=== PATIENT | male | born 1995 | race African-American/Black ===

== ENCOUNTER 2023-08-17 08:44 | Emergency (ER) | payer MEDICAID, SELFPAY ==
--- NOTE | ~2023-08-17 | XR_ITS ---
EXAMINATION: XR CHEST CLINICAL INFORMATION: Shortness of breath. Chest pain. COMPARISON: None available. TECHNIQUE: 2 views of the chest were obtained. FINDINGS: The lungs are well expanded. No focal consolidation. No pleural effusion. Cardiac silhouette is within normal limits. XR/XR chest 2V IMPRESSION: No acute abnormality.
--- NOTE | 2023-08-17 08:47 | ECG_ITS ---
Test Reason : chest tightness Blood Pressure : / mmHG Vent. Rate : 070 BPM Atrial Rate : 070 BPM P-R Int : 172 ms QRS Dur : 094 ms QT Int : 370 ms P-R-T Axes : 013 024 012 degrees QTc Int : 399 ms Normal sinus rhythm Normal ECG No previous ECGs available Referred By: Generic ED Physician Electronically Signed By:Brice Grullon
[2023-08-17 09:08] VITALS: BP 144/89; PULSE 69; RESP 18; TEMP 36.4; O2SAT 97; BMI 45.1
[2023-08-17 09:22] LABS: MANUAL DIFF FLAG NO
[2023-08-17 09:23] LABS: Basophils Percent Auto 0.3 % (0-2); Eosinophils Percent Auto 0.5 % (0-4); Hematocrit 40.1 % (42.0-52.0); Hemoglobin 13.1 g/dl (14.0-18.0); Imm Gran Abs Auto 0.02 X10*3/uL (0.00-0.03); Imm Gran Pct Auto 0.3 % (0.0-0.4); Lymphocytes Absolute Auto 2.2 X10*3/uL (1.2-4.9); Lymphocytes Percent Auto 36.5 % (20-40); Mean Corpuscular HGB Conc 32.7 g/dl (31.0-36.0); Mean Corpuscular Hemoglobin 26.7 pg (27.0-33.0); Mean Corpuscular Volume 81.7 fL (80.0-98.0); Mean Platelet Volume 10.6 fL (9.4-12.4); Monocytes Absolute Auto 0.5 X10*3/uL (0.1-1.2); Monocytes Percent Auto 7.9 % (2-11); Neutrophils Absolute Auto 3.2 x10*3/uL (2.0-8.3); Neutrophils Percent Auto 54.5 % (45-73); Platelet Count 197 X10*3/uL (160-400); Red Blood Count 4.91 X10*6/uL (4.60-5.80); Red Cell Distribution Width 13.8 % (11.0-16.0); White Blood Count 5.9 X10*3/uL (4.8-10.8)
[2023-08-17 09:41] LABS: Anion Gap 12 (12-20); Blood Urea Nitrogen 13 mg/dL (9-16); Calcium 10.1 mg/dL (8.4-10.2); Carbon Dioxide 27 mmol/L (22-29); Chloride 106 mmol/L (96-108); Estimated Glomerular Filt Rate > 60; Glucose Random 116 mg/dL (60-115); Potassium 3.9 mmol/L (3.3-5.1); Sodium 141 mmol/L (135-145)
[2023-08-17 09:51] LABS: Troponin-I High Sensitivity < 2.7 ng/L (<3.5-35.0)
--- NOTE | 2023-08-17 10:20 | ED_ITS ---
HPI - Chest Pain General Chief Complaint: Chest Pain Stated Complaint: Chest Tightness Time Seen by Provider: 08/17/23 10:19 Source: patient Mode of arrival: ambulatory Limitations: no limitations History of Present Illness HPI narrative: 28-year-old male with history of obesity presents to the ER for evaluation of chest pain that started last night while he was at work. He states the patient was sharp and in his central chest. It was nonradiating. He states it started when he was at work, shortly after moving a patient. Also started shortly after eating spicy foods. He took an aspirin and Tums with improvement in the pain. He went home and went to bed. He woke up with recurring pain again today. He reports some shortness of breath with exertion that is chronic in nature. No leg swelling. No cough, difficulty breathing, fever, chills, abdominal pain, nausea or diarrhea. No history of similar episodes in the past. No known medical history. MD complaint: chest pain Onset (ago): day(s) (1) Timing of current episode: episodic Prior episodes: No Onset: during exertion Pain location: substernal Severity: moderate Pain scale (0-10): 6 Quality: sharp Relieving factors: antacids Exacerbating factors: nothing Treatment prior to arrival: aspirin Risk Factors Coronary artery disease risk factors: none Thoracic aortic dissection risk factors: none Related Data Allergies Allergy/AdvReac Type Severity Reaction Status Date / Time No Known Allergies Allergy Verified 08/17/23 09:11 Review of Systems 2 Review of Systems: Yes all other systems are reviewed and are negative [facility] Social History Social History Advance Directives: No Advance Directives Information Provided: No Do you have a plan to hurt others: No Plan Physical Exam 2 Vital Signs: Vital Signs: Last Vital Signs Temp 97.4 F 08/17/23 11:37 Pulse 60 08/17/23 11:37 Resp 20 08/17/23 11:37 BP 147/86 H 08/17/23 11:37 Pulse Ox 96 08/17/23 11:37 O2 Del Method Room Air 08/17/23 11:37 BMI result Body Mass Index 45.1 Appearance: Alert. Oriented X3. No acute distress. Head: normocephalic, atraumatic. Eyes: Pupils equal, round and reactive to light. ENT: Pharynx normal. No tonsillar swelling or exudate. Neck: Normal inspection. Neck supple. CVS: Normal heart rate and rhythm. Pulses normal. Nontender chest wall. Respiratory: No respiratory distress. Breath sounds normal. Abdomen: Obese, Soft and nontender. +BS x4 Skin: Skin warm and dry. Normal skin color. Normal skin turgor. No rashes. Extremities: No lower extremity edema. No joint swelling. Neuro/psych: Oriented X 3. No motor deficit. No sensory deficit. CN II-XII intact. Normal speech and cognition. Medications Administered Discontinued Medications Generic Name Dose Route Start Last Admin Trade Name Dimitrios PRN Reason Stop Dose Admin Calcium Carbonate 1,500 mg 08/17/23 10:41 08/17/23 11:00 Calcium Carbonate 750 Mg Tab.Chew PO 08/17/23 10:42 1,500 mg ONCE ONE Administration Medical Decision Making Medical Decision Making [facility] Narrative: 28-year-old male with no medical history presents to the ER for evaluation of sharp chest pain that started last night, resolved w/ ASA and TUMS. returned today. VS are stable and exam is benign. PERC negative. Chest pain is not pretty reproducible on examination. Low suspicion for cardiac etiology given improvement with Tums. His workup initiated from triage reveals a negative troponin. No need to repeat as onset was greater than 6 hours ago. EKG without ischemic changes. He was given dose of Tums while in the emergency department with improvement in his pain. Most likely reflux. Comfortable w/ discharge home - advised unlikely diagnosis and management with meds and dietary modifications. Differential Diagnosis Differential Diagnoses: The differential diagnosis associated with the presentation includes GERD, esophagitis, ACS, PE, pneumothorax, pneumonia Lab Data [facility] Lab Attestation statement: I reviewed the patient's lab results. Mild anemia, mild hyperglycemia, negative troponin, no major metabolic derangement 08/17/23 09:18 08/17/23 09:18 Labs: Lab Results 08/17/23 Range/Units 09:18 WBC 5.9 (4.8-10.8) X10*3/uL RBC 4.91 (4.60-5.80) X10*6/uL Hgb 13.1 L (14.0-18.0) g/dl Hct 40.1 L (42.0-52.0) % MCV 81.7 (80.0-98.0) fL MCH 26.7 L (27.0-33.0) pg MCHC 32.7 (31.0-36.0) g/dl RDW 13.8 (11.0-16.0) % Plt Count 197 (160-400) X10*3/uL MPV 10.6 (9.4-12.4) fL Immature Gran % (Auto) 0.3 (0.0-0.4) % Neut % (Auto) 54.5 (45-73) % Lymph % (Auto) 36.5 (20-40) % [place] % (Auto) 7.9 (2-11) % Eos % (Auto) 0.5 (0-4) % Baso % (Auto) 0.3 (0-2) % Lymph # (Auto) 2.2 (1.2-4.9) X10*3/uL [place] # (Auto) 0.5 (0.1-1.2) X10*3/uL Eos # (Auto) 0.0 (0.0-0.4) X10*3/uL Baso # (Auto) 0.0 (0.0-0.2) X10*3/uL Abs Immat Gran (auto) 0.02 (0.00-0.03) X10*3/uL Absolute Neuts (auto) 3.2 (2.0-8.3) x10*3/uL Absolute Nucleated RBC 0.000 (0.0-0.012) X10*3/uL Nucleated RBC % (auto) 0.0 (0.0-0.2) /100WBC Sodium 141 (135-145) mmol/L Potassium 3.9 (3.3-5.1) mmol/L Chloride 106 (96-108) mmol/L Carbon Dioxide 27 (22-29) mmol/L Anion Gap 12 (12-20) BUN 13 (9-16) mg/dL Creatinine 0.84 (0.5-1.4) mg/dL Estim Creat Clear Calc 217.0 Estimated GFR > 60 Random Glucose 116 H (60-115) mg/dL Calcium 10.1 (8.4-10.2) mg/dL Troponin I High Sens < 2.7 (<3.5-35.0) ng/L Independent Interpretation I performed an independent interpretation of an: EKG and Plain X-Ray Interpretation: EKG with normal sinus rhythm, ventricular rate 70 beats per minute, normal QTC, normal CO interval, no ST segment elevations or depressions. Chest x-ray with clear lungs, no infiltrate or effusion. Radiology Impression Discussion of test interpretation with radiology: I have reviewed the radiologist's reading. Radiologist Impression: EXAMINATION: XR CHEST CLINICAL INFORMATION: Shortness of breath. Chest pain. COMPARISON: None available. TECHNIQUE: 2 views of the chest were obtained. FINDINGS: The lungs are well expanded. No focal consolidation. No pleural effusion. Cardiac silhouette is within normal limits. XR/XR chest 2V IMPRESSION: No acute abnormality. Prescription Management I considered prescription management with: Other (Antacid, ppi) Chronic Conditions Patient?s care impacted by: Other (Obesity) Critical Care Time Critical Care Time Critical Care Time: No Discharge Plan Discharge Clinical Impression: GERD (gastroesophageal reflux disease) Patient Disposition: Home, Self-Care Instructions: Gastroesophageal Reflux Disease (DC), Noncardiac Chest Pain (ED) Additional Instructions: Your lab workup, EKG, chest x-ray today were all reassuring and unremarkable. Your pain is most likely due to indigestion and reflux. Your lab workup today was unremarkable. Stick to a bland diet. Avoid foods that are spicy, high in acid, avoid alcohol and NSAID medications like Aleve, Motrin, Advil or ibuprofen. Follow up with your doctor as needed. Recommend trial of over the counter Pepcid or Prilosec. You can also take TUMS as needed for heartburn. If you develop new or worsening symptoms call 911 or come back to the ER for further evaluation. Stand Alone Forms: Work/School Release Interventions: ED Discharge Assessment Last Done: 08/17/23 11:37 Discharge Date/Time: 08/17/23 11:38 Print Language: Portuguese
[2023-08-17 10:25] VITALS: BP 126/67; PULSE 52; TEMP 36.9; O2SAT 99
[2023-08-17] MEDS: Calcium Carbonate 750 MG TAB.CHEW 1500 MG PO (11:00)
[2023-08-17 11:37] VITALS: BP 147/86; PULSE 60; RESP 20; TEMP 36.3; O2SAT 96
== END 2023-08-17 11:38 | disposition home or self-care (01) ==
PROVIDERS: Emergency Provider Emergency Medicine
DX: R07.89 Other chest pain (principal); R06.02 Shortness of breath; Z79.899 Other long term (current) drug therapy
CPT/HCPCS: 36415; 71046; 80048; 84484; 85025; 93005; 99284

== ENCOUNTER → 2023-08-17 08:47 | Outpatient (BNV) | payer MEDICAID, SELFPAY | PROVIDERS: Emergency Provider Emergency Medicine; Visit Provider Internal Medicine Cardiovascular Disease | DX: R07.9 Chest pain, unspecified (principal) | CPT/HCPCS: 93010 ==

== ENCOUNTER 2024-01-19 06:41 | Emergency (ER) | payer OTHER, SELFPAY ==
[2024-01-19 06:43] VITALS: BP 139/85; PULSE 66; RESP 20; TEMP 36.6; O2SAT 99; BMI 42.6
--- NOTE | 2024-01-19 08:25 | ED_ITS ---
HPI - Eye Problem General Chief complaint: Eye Problems Stated complaint: Body fluids in eye? Work inj Time Seen by Provider: 01/19/24 07:28 Source: patient and RN notes reviewed Mode of arrival: ambulatory Limitations: no limitations History of Present Illness ED Provider: Amita Steve PA-C HPI Narrative: This is a 28-year-old male who presents emergency department with complaints of left eye redness, drainage, and itchiness which started 4 days ago. Patient states that while he was at work helping a individual shower he felt some of the water ricocheted off of the patient and go directly into his left eye. He finished bathing the patient and rinsed his eye. He was feeling well afterwards and states that the next morning he developed some redness, itchiness and drainage from his left eye. He states that his left eye becomes crusted shut. He states that he continues to have symptoms in his left eye. He denies any eye pain, changes in vision, blurred vision, or double vision. No fevers or chills. He does not wear contacts. No other complaints or concerns at this time. MD chief complaint: eye pain and eye redness Onset (ago): day(s) Onset description: gradual Duration: constant Location: left eye Eye Symptoms: redness, foreign body sensation and itching Place: work Mechanism: none If Pain, Quality: aching Related Data Previous Rx's ?Medication ?Instructions ?Recorded erythromycin 5 mg/gram (0.5 %) eye 0.5 inch ophthalmic (eye) QID 7 01/19/24 ointment days #3.5 grams Allergies Allergy/AdvReac Type Severity Reaction Status Date / Time griseofulvin Allergy Hives Verified 01/19/24 06:44 Review of Systems Review of Systems: Yes all other systems are reviewed and are negative Constitutional: Constitutional: Reports as per [facility] Social History Social History Advance Directives: No Physical Exam Vital Signs: Vital Signs: Last Vital Signs Temp 97.6 F 01/19/24 08:36 Pulse 52 01/19/24 08:36 Resp 18 01/19/24 08:36 BP 114/74 01/19/24 08:36 Pulse Ox 97 01/19/24 08:36 O2 Del Method Room Air 01/19/24 08:36 BMI result Body Mass Index 42.6 Const: General: cooperative, comfortable and no acute distress Orientation/consciousness: patient oriented x3 Limitations: no limitations HEENT: Head: Yes normal to inspection, Yes normocephalic and Yes atraumatic Ears: hearing grossly normal bilaterally General nose exam: Normal external nose present Face and sinus: Yes normal facial exam Mouth: Normal oral and palatal mucosa present, oropharynx normal and moist mucous membranes Throat: Yes posterior oropharynx normal Eyes: Other: Left eye with conjunctiva injected, with yellow crusting noted to lower lid and drainage noted to the medial canthus. No obvious foreign body noted. Extraocular movements intact. No periorbital swelling. Right eye with hordeolum noted to the upper eyelid, no periorbital edema General: appearance normal, both eyes and all related structures Eyelids: Yes eyelids normal Pupils: Equal, round and reactive pupils present EOM: EOMs intact bilaterally Neck: Neck: Yes normal visual inspection, Yes full ROM and Yes no lymphadenopathy Lymphatic: no lymphadenopathy noted Chest: Chest palpation & inspection: normal inspection of the chest Resp: Effort & Inspection: normal respiratory effort and able to speak in complete sentences Auscultation: clear to auscultation bilaterally, no crackles, no rales, no rhonchi and no wheezes Cardio: Rate: regular rate Rhythm: regular rhythm Heart sounds: S1 normal heart sound present and S2 normal heart sound present GI: Inspection: Yes normal to inspection Skin: General skin exam: no rashes or lesions noted Trauma: no lacerations or abrasions Wounds: no wounds Neuro: General: patient oriented x3 and moves all extremities Cranial nerves: Yes Equal, round and reactive pupils present Extrem: General: Yes normal to inspection Right upper extremity: normal to inspection Left upper extremity: normal to inspection Right lower extremity: normal to inspection Left lower extremity: normal to inspection Medical Decision Making Medical Decision Making MDM Narrative: This is a 28-year-old male who presents to the emergency department with complaints of left eye redness status post bodily fluid exposure. Patient was helping wash a patient in the shower when suddenly water splash into his eye. He rinsed his eye out afterwards. He woke the next day with eye redness, and drainage. On arrival, vital signs within normal limits. He is speaking in full sentences under no acute distress. Left eye conjunctiva is injected with slight crusting and drainage noted. Visual acuity within normal limits. We will treat as bacterial infection with erythromycin ointment. Given strict return precautions. He has no eye pain. No vision changes. Patient stable for discharge. Differential Diagnosis Differential Diagnoses: The differential diagnosis associated with the presentation includes Conjunctivitis, corneal alone, periorbital cellulitis, orbital cellulitis Discharge Plan Discharge Clinical Impression: Conjunctivitis Patient Disposition: Home, Self-Care Instructions: Conjunctivitis (ED) Additional Instructions: You were seen in the emergency department due to left eye redness and itchiness. You have evidence of conjunctivitis. Please be advised that this can be contagious, make sure that you wash hands frequently, and surfaces that your hands touch. Please use prescribed antibiotic as directed. Finish the entire course even if your symptoms improve. If any new or worsening symptoms occur including but not limited to increased pain, redness, swelling, changes in vision, high fevers, please seek emergent care. Prescriptions: New erythromycin 5 mg/gram (0.5 %) ointment 0.5 inch ophthalmic (eye) QID 7 Days Qty: 3.5 0RF Stand Alone Forms: Work/School Release Discharge Date/Time: 01/19/24 08:59 Print Language: Lithuanian
[2024-01-19 08:36] VITALS: BP 114/74; PULSE 52; RESP 18; TEMP 36.4; O2SAT 97
== END 2024-01-19 08:59 | disposition home or self-care (01) ==
PROVIDERS: Emergency Provider Emergency Medicine
DX: H10.32 Unspecified acute conjunctivitis, left eye (principal); H57.12 Ocular pain, left eye
CPT/HCPCS: 99283